=== PATIENT | male | born 1970 | race Two or more races ===

== ENCOUNTER 2024-11-16 08:10 | Day surgery (SDC) | payer MEDICAID ==
[~2024-11-16] VITALS: Ht 165.1 cm; Wt 73.3 kg
[2024-11-16] MEDS: ceFAZolin 2gm in dextrose, iso 50 ML IV ONE (05:30)
[~2024-11-16 08:10] MED LIST: BUPIVAcaine/PF 2.5mg/ml (0.25%) 10ml vial ONE; LIDOcaine 2% (20mg/ml) 5ml vial ONE; NO HOME MEDS
[2024-11-16 08:26] VITALS: BP 119/74; PULSE 63; RESP 16; TEMP 98.2; O2SAT 98
[2024-11-16] MEDS: ringers solution, lacted 1,000 ML IV SCH (09:29)
[2024-11-16] MEDS: famotidine 20mg tablet PO ONE (09:29)
[2024-11-16 09:42] LABS: BASOPHILS % (AUTO) 0.6 % (0-1); EOSINOPHILS % (AUTO) 1.1 % (0-6); HEMATOCRIT 44.5 % (42.0-52.0); LYMPHOCYTES # (AUTO) 1.2 X10'3 (1.1-4.8); LYMPHOCYTES % (AUTO) 25.7 % (21-51); MEAN CORPUSCULAR HEMOGLOBIN 29.8 PG (27.0-31.0); MEAN CORPUSCULAR HGB CONC 33.8 g/dL (33.0-36.5); MEAN CORPUSCULAR VOLUME 88.2 FL (78-98); MEAN PLATELET VOLUME 7.6 FL (7.4-10.4); MONOCYTES # (AUTO) 0.4 X10'3 (0-0.9); MONOCYTES % (AUTO) 9.5 % (2-12); NEUTROPHILS # (AUTO) 2.9 X10'3 (1.8-7.7); NEUTROPHILS % (AUTO) 63.1 % (42-75); PLATELET COUNT 243 X10'3 (140-440); RED BLOOD COUNT 5.04 X10'6 (4.70-6.10); RED CELL DISTRIBUTION WIDTH 13.3 % (11.5-14.5); WHITE BLOOD COUNT 4.5 X10'3 (4.5-11.0)
--- NOTE | 2024-11-16 09:47 | ELECTROCARDIOGRAPH REPORT ---
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 SIMI Daugherty Measurements Intervals [place] Rate: 60 P: 30 ME: 139 QRS: 21 QRSD: 83 T: 24 QT: 399 QTc: 399 Interpretive Statements Sinus rhythm Electronically Signed On 11-16-2024 19:13:[address] SIMI Daugherty Please click the below link to view image of tracing.
[2024-11-16 10:05] LABS: ALANINE AMINOTRANSFERASE 44 U/L (12-78); ALBUMIN 4.2 G/DL (3.4-5.0); ALBUMIN/GLOBULIN RATIO 1.4 (1.1-1.5); ALKALINE PHOSPHATASE 97 IU/L (46-116); ANION GAP 7 (8-16); ASPARTATE AMINO TRANSFERASE 25 U/L (10-37); BILIRUBIN,TOTAL 0.4 MG/DL (0.1-1.0); BLOOD UREA NITROGEN 9 MG/DL (7-18); BUN/CREATININE RATIO 9.6 (10.0-20.0); CALCIUM 8.9 MG/DL (8.5-10.1); CHLORIDE 105 MMOL/L (99-107); CREATININE 0.94 MG/DL (0.60-1.10); GLUCOSE 96 MG/DL (70-104); POTASSIUM 3.9 MMOL/L (3.5-5.1); SODIUM 140 MMOL/L (135-145); TOTAL CARBON DIOXIDE 27.9 MMOL/L (24-32); TOTAL PROTEIN 7.1 G/DL (6.4-8.2); eCRCL 77 ML/MIN; eGFR 83 ML/MIN
[2024-11-16 11:07] VITALS: BP 130/85; PULSE 64; RESP 14; O2SAT 97
[2024-11-16 11:10] VITALS: BP 126/85; PULSE 67; RESP 12; O2SAT 96
[2024-11-16 11:20] VITALS: BP 136/89; PULSE 71; RESP 17; O2SAT 99
[2024-11-16] MEDS ORDERED: meperidine/PF 25mg/ml syringe IV PRN (11:20)
[2024-11-16] MEDS ORDERED: ondansetron/PF 4mg/2ml inj IV PRN ×2 (11:20)
[2024-11-16] MEDS ORDERED: morphine 2 MG/ML inj. syringe IV PRN (11:20)
[2024-11-16] MEDS ORDERED: fentaNYL/PF 50MCG/1 ML 2ML syringe IV PRN (11:20)
[2024-11-16] MEDS ORDERED: ringers solution, lacted 1,000 ML IV SCH (11:20)
[2024-11-16 11:30] VITALS: BP 136/89; PULSE 63; RESP 14; O2SAT 99
[2024-11-16 11:40] VITALS: BP 146/88; PULSE 64; RESP 13; O2SAT 99
--- NOTE | 2024-11-16 13:25 | OPERATIVE REPORT ---
Operative Report Providers to ~ Date of Procedure: November 16, 2024 Pre-Operative Diagnosis: Left ring finger flexor digitorum profundus avulsion Post-Operative Diagnosis Left ring finger flexor digitorum profundus avulsion ([place] finger) Procedure Performed Secondary open treatment and flexor digitorum profundus tendon repair left ring finger zone one Surgeon: Aram Christianson MD [employer] None Anesthesiologist: Other (please specify) (Brenton Meredith MD) Type of Anesthesia: Regional Findings: Profundus avulsion fracture retracted under the knees the C1 rachel Complications Estimated Blood Loss: None Specimen Removed: None Description of Procedure: The patient is a 53-year-old man who was holding a dog collar when the dog took off jerking his left hand. He suffered a injury to his left ring finger wound is unable to flex the tip. He also had swelling along the finger and pain. This happened over a month ago. He presented with in the past several days and x-rays showed a an avulsion fracture with a fragment of bone at the middle phalanx level. Diagnosis of [place] finger was made and surgery is indicated to restore function. We had a long discussion about this type of procedure and the length of time that has passed since the injury. He may not have enough flexibility in the tendon and muscle belly to retrieve the tendon. He also may have stiffness and potential for rerupture is a real possibility. We also discussed the potential for infection and nerve damage. He agreed to proceed. Regional anesthetic was given in the operating room and a time-out procedure was performed , the arm was prepped and draped in usual manner. The midaxial incision was made along the ring finger from the tip down to the base. A flap was elevated. The FDP tendon was noted incarcerated at the PIPJ joint level. A window was made between the A2 and A4 pulleys and the tendon was retrieved. It was somewhat frayed and had to be sharply freshened up. There were some adhesions to the FDS end of the tendon sheath. The tendon was pulled distally and freed up from that. We are able to just reach its insertion point. The A4 rachel was obliterated so we could not use that the past the tendon under. A 3- 0 Prolene suture was used to create a whipstitch in the tendon. Kian needles were then drilled from the insertion point out dorsally through the nail plate. The sutures were then passed through and tied over a button dorsally the finger was in near full flexion at this point. The incision was irrigated and closed with Prolene suture. A sterile dressing was applied after Marcaine was injected and a dorsal blocking splint was placed for the middle ring and small fingers with the wrist in 20 of flexion and the fingers curled over in a chaperon position. Tourniquet was released the hand perfused well and he was taken to the recovery room in stable condition ARAM CHRISTIANSON Jr., MD November 16, 2024 13:25
[2024-11-16] MEDS ORDERED: midazolam 1 mg/ML 2ml injection ONE (15:05)
== END 2024-11-16 11:47 | disposition home or self-care (01) ==
LOC: PAS 08:10
PROVIDERS: ATTEND Orthopaedic Surgery Hand Surgery
DX: S66.195A Other injury of flexor muscle, fascia and tendon of left ring finger at wrist and hand level, initial encounter (principal); X58.XXXA Exposure to other specified factors, initial encounter; G43.909 Migraine, unspecified, not intractable, without status migrainosus; Y93.89 Activity, other specified; Y92.89 Other specified places as the place of occurrence of the external cause; Y99.8 Other external cause status; Z79.899 Other long term (current) drug therapy; Z87.891 Personal history of nicotine dependence
CPT/HCPCS: 26350; 36415; 80053; 82948; 85025; 93005; J2003; J2250; J3490; J7030; J7120; Z7506; Z7512; A4215; A4618; A6449; A7000